=== PATIENT | female | born 1970 | race Caucasian/White ===

== ENCOUNTER 2022-10-28 11:50 | Outpatient (CLI) | payer BC | END 2022-10-28 11:51 | disposition home or self-care (01) | LOC: RAD 11:50 | PROVIDERS: ATTEND Family Medicine | DX: M47.26 Other spondylosis with radiculopathy, lumbar region (principal); M51.16 Intervertebral disc disorders with radiculopathy, lumbar region; M51.37 Other intervertebral disc degeneration, lumbosacral region; M25.78 Osteophyte, vertebrae | CPT/HCPCS: 72100 ==